=== PATIENT | male | born 1955 | race Caucasian/White ===

== ENCOUNTER 2019-01-15 15:34 | Emergency (ER) | payer BC ==
[2019-01-15 15:41] VITALS: BP 145/100; PULSE 98; TEMP 98; BMI 29.7
--- NOTE | 2019-01-15 16:49 | PDOC ---
Documentation entered by Abhijeet Woo SCRIBE, acting as scribe for Bladimir Emanuel MD. Bladimir Emanuel MD: This documentation has been prepared by the Chilo martin Aiswarya, SCRIBE, under my direction and personally reviewed by me in its entirety. I confirm that the documentation accurately reflects all work, treatment, procedures, and medical decision making performed by me. History of Present Illness - General Chief Complaint: Back Pain Stated Complaint: LEFT FLANK/BACK PAIN Time Seen by Provider: 01/15/19 15:37 History Source: Patient Exam Limitations: No Limitations - History of Present Illness Initial Comments: 01/15/19 16:38 The patient is a 63 year old male, with no significant PMH, who presents to the emergency department with flank pain that began 3 weeks ago. The patient states intermittent pain is located to the left flank that radiates to the left lower quadrant. The patient states he went to [facility] on 12/28/2018 secondary to the pain where they think he may have passed a stone because there was some blood in his urine. CAT scan was not done at [facility] so patient made an appointment with his urologist last week where he got a CAT scan and ultrasound done. Patient states pain progressively worsened today and came to the ER for further evaluation. He states CAT scan and ultrasound reports he did at the urologist did not come back yet. The patient denies chest pain, shortness of breath, headache and dizziness. Denies fever, chills, nausea, vomit, diarrhea and constipation. Denies dysuria, frequency, urgency and hematuria. Allergies: NKDA Past surgical history: None reported Social history: None reported PCP: None reported Past History - Past Medical History Allergies/Adverse Reactions: Allergies Allergy/AdvReac Type Severity Reaction Status Date / Time No Known Allergies Allergy Verified 01/15/19 15:36 Home Medications: Ambulatory Orders Bimatoprost [Lumigan] 1 drop OU HS 01/15/19 COPD: No Kidney Stones: Yes Other medical history: increased pressure in the eyes - Psycho Social/Smoking Cessation Hx Smoking History: Never smoked Have you smoked in the past 12 months: No Information on smoking cessation initiated: No Hx Alcohol Use: No Review of Systems - Review of Systems Able to Perform ROS?: Yes Comments:: 01/15/19 16:38 GENERAL/CONSTITUTIONAL: No fever or chills. No weakness. HEAD, EYES, EARS, NOSE AND THROAT: No change in vision. No ear pain or discharge. No sore throat. CARDIOVASCULAR: No chest pain or shortness of breath. RESPIRATORY: No cough, wheezing, or hemoptysis. GASTROINTESTINAL: +CVA tenderness. No nausea, vomiting, diarrhea or constipation. GENITOURINARY: No dysuria, frequency, or change in urination. MUSCULOSKELETAL: No joint or muscle swelling or pain. No neck or back pain. SKIN: No rash NEUROLOGIC: No headache, vertigo, loss of consciousness, or change in strength/ sensation. ENDOCRINE: No increased thirst. No abnormal weight change. HEMATOLOGIC/LYMPHATIC: No anemia, easy bleeding, or history of blood clots. ALLERGIC/IMMUNOLOGIC: No hives or skin allergy. Constitutional: No: Chills, Fever Respiratory: No: Cough, Shortness of Breath Cardiac (ROS): No: Chest Pain ABD/GI: No: Constipated, Diarrhea, Vomiting : Yes: See HPI, Flank Pain. No: Dysuria, Frequency, Hematuria All Other Systems: Reviewed and Negative *Physical Exam - Vital Signs Last Vital Signs Temp Pulse Resp BP Pulse Ox 98 F 98 H 18 145/100 99 01/15/19 15:35 01/15/19 15:35 01/15/19 15:35 01/15/19 15:35 01/15/19 15:35 - Physical Exam Comments: 01/15/19 16:39 GENERAL: The patient is awake, alert, and fully oriented, in no acute distress. HEAD: Normal with no signs of trauma. EYES: Pupils equal, round and reactive to light, extraocular movements intact, sclera anicteric, conjunctiva clear with no pallor. LUNGS: Breath sounds equal, clear to auscultation bilaterally. No wheeze/ crackles. HEART: Regular rate and rhythm, normal S1 and S2 without murmur or rub. ABDOMEN:+Slight CVA discomfort. Soft/nontender/nondistended. BS wnl. No guarding or rebound. No palpable masses. No hepatosplenomegaly. EXTREMITIES: Normal range of motion, no edema. No clubbing or cyanosis. No cords, erythema, or tenderness. NEUROLOGICAL: Cranial nerves II through XII grossly intact. Normal speech, normal gait. PSYCH: Normal mood, normal affect. SKIN: Warm, Dry, normal turgor, no rashes or lesions noted Heart Score/ECG Review #1 ECG reviewed & interpreted by me at: 17:53 General ECG Interpretation: Sinus Rhythm, Normal Rate (89), Normal Intervals ( qtc 438), No acute ischemic changes ED Treatment Course - LABORATORY CBC & Chemistry Diagram: 01/15/19 16:30 01/15/19 16:30 - ADDITIONAL ORDERS Additional order review: Laboratory Results 01/15/19 15:50 Urine Color Yellow Urine Appearance Clear Urine pH 5.5 Urine Protein Negative Urine Glucose (UA) Negative Urine Ketones Negative Urine Blood Negative Urine Nitrite Negative Urine Bilirubin Negative Urine Urobilinogen 0.2 Ur Leukocyte Esterase Negative - RADIOLOGY Radiology Studies Ordered: Category Date Time Status ABDOMEN & PELVIS CT W/O CONTR [CT] Stat CT Scan 01/15/19 15:58 Taken Medical Decision Making - Medical Decision Making 01/15/19 16:47 A portion of this note was documented by scribe services under my direction. I have reviewed the details of the note, within reason, and agree with the documentation with the following case summary and management plan written by me. 53-year-old male presents for evaluation of 3 weeks of ongoing left flank pain. Initially evaluated at [facility] where labs and urinalysis presented evidence of recently passed stone, but he had no imaging. Follow up with urology showed hydronephrosis on ultrasound, had a CAT scan as an outpatient last week but is still pending results, when he developed another pain exacerbation in his left flank today the office referred him to the emergency department. His urologist is not in the office given the holiday. No fevers or chills, no urinary complaints, no vomiting or diarrhea. Exam as noted with isolated left flank/CVA discomfort, no rash, no lymphadenopathy, exam is normal uncircumcised. 53-year-old male with persistent left flank pain and concern for retained stone with hydronephrosis. No evidence of superimposed infection on history or physical exam. Urinalysis is clear Labs sent CT of the abdomen and pelvis performed given concern for persistent obstruction given the history of hydronephrosis, on my preliminary review there appears to be a distal left UVJ stone with hydroureter and hydronephrosis. Awaiting final read by radiology. 01/15/19 18:26 Case d/w Dr. Pierre given duration of sxs and slightly elevated Cr 1.7 ( unknown baseline). Agrees will need more prompt evaluation, and can see patient in office at 9am tomorrow. Official CT read shows distal ureteral 5x3mm stone with moderate hydronephrosis , no other acute abnormalities. Pain controlled, declined pain meds here but did receive some tylenol. Agrees with outpt plan, will f/u tomorrow at 9am, understands return criteria for ED. Discharge - Discharge Information Problems reviewed: Yes Clinical Impression/Diagnosis: Left flank pain, Kidney stone on left side Condition: Stable Disposition: HOME - Follow up/Referral Referrals: Bob Pierre MD [Staff Physician] - - Patient Discharge Instructions Patient Printed Discharge Instructions: DI for Kidney Stones Additional Instructions: Activity as tolerated. Stay hydrated. A CAT scan today confirms a 5 mm stone in the lower part of the left ureter with moderate hydronephrosis/blockage, but there is no evidence of infection on urine testing. The kidney creatinine test measured at 1.7, which is slightly elevated. Tylenol 1000 mg every 8 hours and/or ibuprofen 600 mg every 8 hours as needed for pain. Continue your medications as previously prescribed by your physician. You should follow up with UROLOGY regarding today's emergency department visit. Dr. PIERRE IS AWARE OF YOUR CASE AND IS EXPECTING TO SEE YOU IN HIS OFFICE AT 9AM TOMORROW MORNING. Return to the emergency department for any new or concerning symptoms, particularly persistent or intolerable pain, fever, difficulty urinating or inability to urinate. - Post Discharge Activity
[2019-01-15 16:53] LABS: BASO % 1.1 % (0-2.0); EOS % 0.8 % (0-4.5); HEMATOCRIT 43.3 % (35.4-49); HEMOGLOBIN 14.6 GM/dl (11.7-16.9); LYMPH % 11.3 % (8-40); MCH 33.1 pg (25.7-33.7); MCHC 33.7 g/dl (32.0-35.9); MEAN CELL VOLUME 98.3 fl (80-96); NEUT % 76.8 % (42.8-82.8); PLATELET COUNT 263 K/MM3 (134-434); RDW 11.7 % (11.9-15.9); WHITE BLOOD COUNT 9.5 K/mm3 (4.0-10.8)
[2019-01-15 17:00] LABS: INR 1.12 (0.82-1.09); PROTHROMBIN TIME (PATIENT) 12.5 SEC (10.2-13.0)
[2019-01-15 17:05] LABS: BILIRUBIN,TOTAL 1.5 mg/dl (0.2-1); CREATININE 1.7 mg/dl (0.55-1.3); POTASSIUM 4.3 mmol/L (3.5-5.1); TOT PROT 7.1 g/dl (6.4-8.2)
[2019-01-15] MEDS ORDERED: ACETAMINOPHEN 1000 MG/100 ML VIAL (NON FORMULARY) IVPB ONE (17:46)
--- NOTE | 2019-01-17 12:13 | EKG ---
Test Reason : Blood Pressure : / mmHG Vent. Rate : 089 BPM Atrial Rate : 089 BPM P-R Int : 134 ms QRS Dur : 092 ms QT Int : 360 ms P-R-T Axes : 034 -01 010 degrees QTc Int : 438 ms NORMAL SINUS RHYTHM NORMAL ECG NO PREVIOUS ECGS AVAILABLE Confirmed by ROBERTO WHITLEY MD ([id number]) on 01/17/2019 12:12:47 PM Referred By: Confirmed By:ROBERTO WHITLEY MD
== END 2019-01-15 18:55 | disposition home or self-care (01) ==
LOC: FER 15:34
PROC: 3E033GC Introduction of Other Therapeutic Substance into Peripheral Vein, Percutaneous Approach (ICD-10-PCS; principal; 2019-01-15)
DX: R10.32 Left lower quadrant pain (principal); N20.0 Calculus of kidney
CPT/HCPCS: 36415; 74176-TC; 80053; 81003; 85025; 85610; 93005; 99284-25; J0131